=== PATIENT | male | born 1950 | race Caucasian/White ===

== ENCOUNTER → 2020-05-12 | Outpatient (CLI) | payer MEDICARE ==
[~2020-05-12] MED LIST: REGADENOSON 0.4 MG/5 ML PF SYG IVP SCH
== END | disposition home or self-care (01) ==
LOC: SHCH 08:42
PROVIDERS: ATTEND Internal Medicine Cardiovascular Disease
DX: R07.9 Chest pain, unspecified (principal)
CPT/HCPCS: 78452; 93017; 96374; A9500 ×2; J2785

== ENCOUNTER → 2023-10-05 | Outpatient (CLI) | payer OTHER, MEDICARE ==
[~2023-10-05] MED LIST changes: +OMEG-148 PO; -REGADENOSON 0.4 MG/5 ML PF SYG IVP SCH
[2023-10-05 12:40] LABS: HEMOGLOBIN A1C 5.1 % (4.0-6.0)
[2023-10-05 12:43] LABS: ALBUMIN 3.9 g/dL (3.5-5.0); BILIRUBIN,TOTAL 0.4 mg/dL (0.2-1.0); CREATININE 1.3 mg/dL (0.5-1.5); POTASSIUM 4.6 mmol/L (3.5-5.1); TOTAL PROTEIN, SERUM 7.4 g/dL (6.0-8.3)
== END | disposition home or self-care (01) ==
LOC: LAB 08:22
PROVIDERS: ATTEND Student in an Organized Health Care Education/Training Program
DX: R07.89 Other chest pain (principal); R00.2 Palpitations; R06.02 Shortness of breath; R06.09 Other forms of dyspnea; K21.9 Gastro-esophageal reflux disease without esophagitis; R53.83 Other fatigue; Z79.899 Other long term (current) drug therapy
CPT/HCPCS: 36415; 80053; 80061; 83036

== ENCOUNTER → 2023-10-12 | Outpatient (CLI) | payer OTHER, MEDICARE ==
[~2023-10-12] MED LIST changes: +IOHEXOL 350 MG/ML 100ML INFUS..BTL IV ONE; +METOPROLOL TARTRATE 1 MG/ML 5ML VIAL IV ONE
== END | disposition home or self-care (01) ==
LOC: RAH 09:55
PROVIDERS: ATTEND Student in an Organized Health Care Education/Training Program
DX: I25.10 Atherosclerotic heart disease of native coronary artery without angina pectoris (principal); R07.89 Other chest pain; M47.815 Spondylosis without myelopathy or radiculopathy, thoracolumbar region
CPT/HCPCS: 75574; J3490 ×2; Q9967 ×2

== ENCOUNTER → 2023-11-16 | Outpatient (CLI) | payer OTHER, MEDICARE ==
[~2023-11-16] MED LIST changes: -IOHEXOL 350 MG/ML 100ML INFUS..BTL IV ONE; -METOPROLOL TARTRATE 1 MG/ML 5ML VIAL IV ONE
== END | disposition home or self-care (01) ==
LOC: RAH 10:04
PROVIDERS: ATTEND Student in an Organized Health Care Education/Training Program
DX: R00.2 Palpitations (principal)
CPT/HCPCS: 93306

== ENCOUNTER 2024-01-02 08:05 | Day surgery (SDC) | payer OTHER, MEDICARE ==
[2023-12-29 11:11] LABS: APPEARANCE,URINE CLEAR (CLEAR); BILIRUBIN,URINE NEGATIVE (NEGATIVE); COLOR,URINE LIGHT-YELLOW (YELLOW); GLUCOSE, URINE (UA) NEGATIVE (NEGATIVE); KETONES,URINE NEGATIVE (NEGATIVE); LEUKOCYTE ESTERASE ,URINE NEGATIVE Leu/uL (NEGATIVE); NITRATE,URINE NEGATIVE (NEGATIVE); OCCULT BLOOD,URINE NEGATIVE (NEGATIVE); PH,URINE 5.5 (5.0-8.0); PROTEIN,URINE NEGATIVE (NEGATIVE); UROBILINOGEN,URINE 0.2 mg/dL (0.2-1.0)
[2023-12-29 11:13] LABS: ADD UA MICROSCOPIC NO
[2023-12-29 11:14] LABS: CREATININE 1.4 mg/dL (0.5-1.3); POTASSIUM 3.9 mmol/L (3.5-5.1)
[2023-12-29 11:17] VITALS: BP 161/80; PULSE 77; RESP 16
[2023-12-29 11:17] LABS: BASOPHILS # (AUTO) 0.04 K/uL (0.00-0.20); BASOPHILS % (AUTO) 0.6 % (0.0-5.0); EOSINOPHILS # (AUTO) 0.24 K/uL (0.00-0.70); EOSINOPHILS % (AUTO) 3.7 % (0.0-8.0); HEMATOCRIT 36.1 % (42-54); IMMATURE GRANULOCYTE ABSOLUTE 0.03 K/uL (0-1); LYMPHOCYTES # (AUTO) 1.2 K/uL (1.0-4.8); LYMPHOCYTES % (AUTO) 18.8 % (21.0-51.0); MEAN CORPUSCULAR HEMOGLOBIN 31.6 pg (27.0-33.0); MEAN CORPUSCULAR HGB CONC 35.5 g/dL (32.0-36.0); MEAN CORPUSCULAR VOLUME 89.1 fL (79-99); MONOCYTES # (AUTO) 0.7 K/uL (0.1-1.0); MONOCYTES % (AUTO) 10.7 % (3.0-13.0); NEUTROPHILS # (AUTO) 4.2 K/uL (1.8-7.7); NEUTROPHILS % (AUTO) 65.7 % (40.0-77.0); PLATELET COUNT (AUTO) 314 K/uL (130-400); RED BLOOD CELL COUNT(AUTO) 4.05 MIL/uL (4.50-6.20); RED CELL DISTRIBUTION WIDTH 13.7 % (11.0-15.5); WHITE BLOOD COUNT (AUTO) 6.4 K/uL (4.8-10.8)
[2023-12-29 11:28] LABS: INR <= 0.93 (0.85-1.15); PROTHROMBIN TIME 10.6 SEC (9.6-11.6)
[2023-12-29 11:30] LABS: PARTIAL THROMBOPLASTIN TIME 27.6 SEC (26.3-35.5)
[2023-12-29 11:51] LABS: B-TYPE NATRIURETIC PEPTIDE 60 pg/mL (0-100)
[~2024-01-02] VITALS: Ht 167.6 cm; Wt 57.8 kg
[2024-01-02] VITALS (11 sets, daily range): BP systolic 128–167; BP diastolic 65–93; PULSE 59–84; RESP 14–17
[~2024-01-02 08:05] MED LIST changes: +DICL50TA9 PO
[2024-01-02] MEDS: DiphenhydrAMINE HCL 50 MG/ML VIAL ONE (09:46)
[2024-01-02] MEDS: SOLU-MEDROL 125MG VIAL ONE (09:46)
[2024-01-02] MEDS: FAMOTIDINE 20MG VIAL IV ONE (09:51)
[2024-01-02] MEDS ORDERED: DiphenhydrAMINE HCL 50 MG/ML VIAL IV ONE (10:00)
[2024-01-02] MEDS ORDERED: FAMOTIDINE 20MG VIAL IV ONE (10:00)
[2024-01-02] MEDS ORDERED: SOLU-MEDROL 125MG VIAL IVP ONE (10:00)
[2024-01-02] MEDS ORDERED: NITROGLYCERIN 50MG VIAL ONE (10:06)
[2024-01-02] MEDS ORDERED: VERAPAMIL HCL 2.5 MG/ML VIAL ONE (10:06)
[2024-01-02] MEDS ORDERED: IOHEXOL 350 MG/ML 100ML INFUS..BTL IV ONE (10:06)
[2024-01-02] MEDS ORDERED: LIDOCAINE HCL 400MG/20ML VIAL ONE (10:06)
[2024-01-02] MEDS ORDERED: HEPARIN 10,000 UNIT/10ML (1,000 UNIT/ML) VIAL ONE (10:06)
[2024-01-02] MEDS ORDERED: MIDAZOLAM HCL 1 MG/ML 2ML VIAL ONE ×2 (10:13→10:42)
[2024-01-02] MEDS ORDERED: FENTANYL CITRATE PF 50 MCG/1 ML 2ML VIAL ONE (10:13)
[2024-01-02] MEDS ORDERED: GLUCAGON 1MG KIT 1 MG ML IM PRN (11:30)
[2024-01-02] MEDS ORDERED: 0.9%NACL 1000ML 1,000 ML IV SCH (11:30)
[2024-01-02] MEDS ORDERED: DEXTROSE 50%-WATER 50 ML DISP.SYRIN IV PRN (11:30)
== END 2024-01-02 15:40 | disposition home or self-care (01) ==
LOC: DAH 08:05
PROVIDERS: ATTEND Student in an Organized Health Care Education/Training Program
DX: I25.10 Atherosclerotic heart disease of native coronary artery without angina pectoris (principal); I10 Essential (primary) hypertension; E78.5 Hyperlipidemia, unspecified; K21.9 Gastro-esophageal reflux disease without esophagitis; M19.011 Primary osteoarthritis, right shoulder; Z79.01 Long term (current) use of anticoagulants; Z79.82 Long term (current) use of aspirin; Z79.899 Other long term (current) drug therapy
CPT/HCPCS: 80048; 83880; 85025; 85610; 85730; 81003; 36415; 71045; 93005; 93458; Q9965; C1769 ×2; C1894; A4649; J1200; J3490 ×4; J3010; J2930; J1644 ×2; J2250 ×2; Q9967; A4215; A4222; A4221; A4663; A4216; A4606; A4223 ×3; 96361; 99156; 99157